=== PATIENT | female | born 1990 | race African-American/Black ===

== ENCOUNTER 2021-08-19 13:05 | Emergency (ER) | payer OTHER ==
[~2021-08-19] VITALS: Ht 157.5 cm; Wt 72.6 kg
[2021-08-19 13:15] VITALS: BP 115/70
--- NOTE | 2021-08-19 13:27 | NUR ---
C/O N/V/D, DIZZINESS , 04/07 HEADACHE S/P SYNCOPE & FALL X YESTERDAY.
[2021-08-19] MEDS ORDERED: ONDANSETRON 4 MG ODT PO ONE (15:05)
[2021-08-19] MEDS ORDERED: KETOROLAC 60 MG/2 ML VIAL IM ONE (15:05)
[2021-08-19 15:12] LABS: BASOPHILS % (AUTO) 0.6 % (0.0-2.0); EOSINOPHILS % (AUTO) 0.3 % (0.0-4.0); HEMATOCRIT 42.8 % (36-48); HEMOGLOBIN 13.8 g/dL (12.0-16.0); LYMPHOCYTES # (AUTO) 1.7 K/uL (2.5-16.5); MEAN CORPUSCULAR HEMOGLOBIN 28 pg (27-31); MEAN CORPUSCULAR HGB CONC 32 g/dL (33-37); MEAN CORPUSCULAR VOLUME 85.8 fL (80-94); MONOCYTES # (AUTO) 0.6 K/uL (0.8-1.0); MONOCYTES % (AUTO) 8.5 % (1.7-9.3); NEUTROPHILS # (AUTO) 4.9 K/uL (1.8-7.7); NEUTROPHILS % (AUTO) 67.6 % (42.2-75.2); PLATELET COUNT (AUTO) 266 K/uL (140-450); RED BLOOD CELL COUNT(AUTO) 4.99 MIL/uL (4.20-5.40); RED CELL DISTRIBUTION WIDTH 13.6 % (11.6-13.7); WHITE BLOOD COUNT (AUTO) 7.3 K/uL (4.8-10.8)
[2021-08-19 15:56] LABS: ALBUMIN 3.9 g/dL (3.4-5.0); ANION GAP 14.5 (8-16); CARBON DIOXIDE 27.2 mmol/L (21-32); CREATININE 0.8 mg/dL (0.6-1.3); POTASSIUM 4.7 mmol/L (3.5-5.1); TOTAL BILIRUBIN 0.6 mg/dL (0.0-1.0)
[2021-08-19] MEDS ORDERED: IBUP-2213 PO (16:44)
[2021-08-19] MEDS ORDERED: ONDA8TAB87 PO (16:44)
--- NOTE | 2021-08-19 16:51 | NUR ---
Patient discharged with v/s stable. Written and verbal after care instructions given and explained. Patient alert, oriented and verbalized understanding of instructions. Ambulatory with steady gait. All questions addressed prior to discharge. ID band removed. Patient advised to follow up with PMD. Rx of ZOFRAN, IBU given. Patient educated on indication of medication including possible reaction and side effects. Opportunity to ask questions provided and answered. NO NURSING CARE RENDERED
[2021-08-19 17:05] VITALS: BP 110/68
== END 2021-08-19 17:05 | disposition home or self-care (01) ==
LOC: MED 13:05
DX: R11.2 Nausea with vomiting, unspecified (principal); R55 Syncope and collapse; R19.7 Diarrhea, unspecified; R42 Dizziness and giddiness; G43.909 Migraine, unspecified, not intractable, without status migrainosus; Z98.890 Other specified postprocedural states
CPT/HCPCS: 36415; 70450; 80053; 81002; 81025; 85025; 93005; 96372; 99285; J1885; Q0162